=== PATIENT | female | born 1950 | race Caucasian/White ===

== ENCOUNTER → 2017-09-12 | Outpatient (CLI) | payer MEDICARE, OTHER ==
[~2017-09-12] MED LIST: ASPIRIN81 M2 PO; CARAFATE 1 GM TA1 G1 PO; DOLOPHINE HCL5 MG PO; DUONEB 2.5-0.5 M3 ML INH; EPIPEN0.3 MG/0.3 IM; HYDROCODON-ACE1 EAC5 PO; HYDROCODON-ACE1 EAC8 PO; HYDROCODONE-APA1 TA1 PO; METOPROLOL PO; MS CONTIN15 MG PO; NEXIUM40 MG PO; NORCO 10-325 T1 EACH PO; NORCO 7.5-3251 EACH PO; NORVASC 5 MG TAB5 MG PO; OXYCONTIN30 MG PO; PREDNISONE 10 M10 MG PO; PROAIR HFA8.5 GM INH; PROTONIX40 M1 PO; RESTORIL15 MG PO; ROBAXIN 750 MG750 M1 PO; SPIRIVA INH; SUBOXONE 8 MG-1 EAC3 SL; TIZANIDINE HCL4 MG PO; ZANAFLEX4 MG PO; ZANTAC 150MG T150 M1 PO
--- NOTE | 2017-09-17 07:21 | PAINCON ---
[address] [address] PAIN MANAGEMENT CONSULTATION Name: RAMBO BERNSTEIN Room: [facility] Calzada#: [id number] Admission: 09/12/17 Attend Phys: Sixto Middleton Discharge: Date of : 52 Report #: [id number] THIS REPORT FOR: //name// CC: Jose Murry The patient is a 67-year-old female typically treated for lumbar radiculopathy requiring complex medication management. Comorbidities include COPD. Last seen in pain clinic on 06/13/2017. The patient was having increasing radicular symptoms and we suggested she follow up with Neurosurgery. She ultimately did see Neurosurgery and had a posterior fusion. She returns to pain clinic today, she is wearing a neck collar. She notes the surgeon had told her that she had a severe stenosis and was concerned for myelopathy. The patient was in fact getting some paresthesia in her hands prior to the surgery, The patient notes her strength is significantly better in the upper extremities, though she still has some paresthesia in her thumb, index and long finger (C6 and C7). Otherwise, physical exam shows a 67-year-old female, quite cachectic with a BMI of 15.8 kilograms per meter squared (5 feet 2 inches, 84 pounds). Blood pressure 104/59, pulse 127, respirations 18. Again, cervical range of motion exam is deferred due to hard collar. Upper extremity strength, however, is improving. Deep tendon reflexes are diminished but symmetric. Subjective paresthesia in the thumb and index and ring finger. Negative Tinel's. The patient is wearing supplemental oxygen, but she has been able to walk without a walker. We reviewed the fact that opiate medications are being used to provide analgesia adequate to support activities of daily living, not attempting to achieve a specific pain score on the 0-10 Visual Analog Scale. The current opiate medications are providing sufficient analgesia to allow the patient to participate in activities of daily living. The patient is not exhibiting any aberrant behavior suggestive of drug diversion. The patient is not having any adverse reactions to medications. The patient is not suffering from daytime somnolence or mental acuity changes. The patient is managing opiate-induced constipation with appropriate hqeo-loq-ppncwxf agents and dietary considerations. The patient was counseled on concern for caution with operating a motor vehicle while using opiate medications. A physical exam was performed and the patient's functional status was evaluated. All patients with back pain were advised against the bed rest greater than 4 days and were advised to return to normal activities. Pain score assessment was noted and the treatment plan was reviewed with the patient. All current medications, both prescribed and OTC were reviewed and reconciled on the electronic medical record. Tobacco screening was accomplished and smoking cessation was advised when indicated. BMI was noted and diet/exercise modification was recommended for all [place] [address] PAIN MANAGEMENT CONSULTATION Name: RAMBO BERNSTEIN Room: [facility]#: [id number] Admission: 09/12/17 Attend Phys: Sixto Middleton Discharge: Date of : 52 Report #: [id number] parameters. I reviewed with the patient today their responsibilities to safeguard prescription medications, reviewed their responsibility to utilize medications only as prescribed by the physician. They are to seek and receive pain medications only from 1 physician group ( [facility]). They are to use 1 pharmacy and keep the clinic informed if they change pharmacies. Their responsibilities include making followup visits in a timely fashion and to avoid abrupt discontinuation of medication usage. Their responsibilities further include bringing their medications (bottles from the pharmacy with residual pills) to the visit for possible confirmation of pill counts and the patient understands it is their responsibility to submit to random drug screens to ensure both that the medications prescribed are present, and that no other controlled substances are present. All prescriptions provided today were generated electronically. ASSESSMENT: Symptomatic cervical radiculopathy status post decompressive laminectomy, neuropathic pain requiring high risk complex medication management. RECOMMENDATIONS: Continue current medication including hydrocodone 7.5/325 up to 4 a day, I have taken the liberty of writing for 2 months of current medication. Continue Robaxin 750 mg 1-2 tablets 3 times a day, though she does not require prescription for this today. <ELECTRONICALLY SIGNED> By: Zachariah Murry DO 09/17/17 0721 [id number] Murry DO /nt
== END ==
LOC: M.PC 08-15 09:40
DX: M54.12 Radiculopathy, cervical region (principal); J44.9 Chronic obstructive pulmonary disease, unspecified; Z98.890 Other specified postprocedural states

== ENCOUNTER → 2017-11-07 | Outpatient (CLI) | payer MEDICARE, OTHER ==
--- NOTE | 2017-11-09 09:51 | PAINCON ---
[address] [address] PAIN MANAGEMENT CONSULTATION Name: RAMBO BERNSTEIN Room: [facility] Calzada#: [id number] Admission: 11/07/17 Attend Phys: Sixto Middleton Discharge: Date of : 52 Report #: [id number] THIS REPORT FOR: //name// CC: Jose Murry HISTORY OF PRESENT ILLNESS: The patient is a 67-year-old female, long known to the pain clinic, being treated for cervical radiculopathy, lumbar radiculopathy, status post cervical decompressive laminectomies. Comorbidities include COPD. She has chronic pain requiring complex medication management. Last seen in the pain clinic on 09/12/2017. She had a cervical laminectomy and posterior fusion on 07/26/2017. Returns to pain clinic today, is actually doing reasonably well. We did have a prolonged visit from 10:15-10:40 today. She continues to take hydrocodone 7.5/325 one tablet up to 4 times a day for pain. She was developing some myelopathy back in July subsequent to the surgery. She has actually been doing significantly better. She had to wear a neck brace for a number of weeks. She has been out of her cervical soft collar for about 10 days. Still has a little neck pain, but she feels much better. Unfortunately, she was hospitalized for COPD and what sounds like a component of pneumonia, just got out 11/02/2017. She is currently on steroid and Levaquin. Rates pain as 6 on a VAS. PHYSICAL EXAMINATION: Shows 5 feet 2 inches, 83 pounds female, BMI is quite low at 15.3 kilograms per meter squared. She does have osteoporosis, but is on no current treatment. We counseled the patient regarding at least protein supplementation for the low BMI. Blood pressure 106/81, pulse 104, respirations 20. Cervical range of motion is limited, but improving. Upper extremity strength is diminished, but symmetric. With 2 liters supplemental oxygen we were unable to get oxygen sat. She does have Raynaud's and her hands are fairly dusky. She does have palpable radial pulses and she is alert and oriented. Rises from the chair easily. Gait is tandem, modestly ataxic, but significantly improving from her earlier myelopathic presentation. She is still using a cane episodically, though she has progressed and is not using a walker daily. To her credit, she is "weaning" cigarettes, still smoking, however, at three cigarettes a day. Also to the patient's credit, she continues to workout with physical therapy 3 times a week and daily works out with her home "total gym." Today, she is wearing a brace in the right knee. States she has some hyperextension issues though exam shows need to have no ballotable edema and ligaments appear to be generally intact. RECOMMENDATION: We will continue hydrocodone 7.5/325 up to 4 a day for another 1-2 months. Ostensibly would plan to start weaning at that point; however, the patient typically takes too long motorcycle rides with her . He drives [facility] [address] [place] [address] PAIN MANAGEMENT CONSULTATION Name: RAMBO BERNSTEIN Room: [facility] Calzada#: [id number] Admission: 11/07/17 Attend Phys: Sixto Middleton Discharge: Date of : 52 Report #: [id number] the motorcycle and she writes on back. They are going this January and February to [place] and [place]. I typically increase her hydrocodone a little bit to 10/325 product to help with ongoing axial pain with the right. She still, however, does need to get release from her neurosurgeon to be able to wear the helmet for a prolonged period of time status post fusion in July. The patient discharged in good and stable condition. Follow up in 2 months. We had a prolonged visit today, greater than 25 minutes was spent reviewing interval history and discussing therapeutic options moving forward. <ELECTRONICALLY SIGNED> By: Zachariah Murry DO 11/09/17 0951 [id number] Murry DO /nt
== END ==
LOC: M.PC 02:29
DX: M54.12 Radiculopathy, cervical region (principal); M54.16 Radiculopathy, lumbar region; J44.9 Chronic obstructive pulmonary disease, unspecified

== ENCOUNTER → 2018-01-02 | Outpatient (CLI) | payer MEDICARE, OTHER ==
--- NOTE | 2018-01-03 07:50 | PAINCON ---
[facility] [address] [place] [address] PAIN MANAGEMENT CONSULTATION Name: RAMBO BERNSTEIN Room: [facility] Calzada#: [id number] Admission: 01/02/18 Attend Phys: Sixto Middleton Discharge: Date of : 52 Report #: [id number] THIS REPORT FOR: //name// CC: Jose Murry The patient is a 67-year-old female, long known to pain clinic, initially treated for cervical radiculopathy, status post decompressive laminectomy, axial back pain requiring complex medication management. Comorbidity includes significant COPD. She had been a lifelong smoker. Developed increasing COPD with increasing shortness of breath. She has been stable on hydrocodone 7.5/325 four a day. She has been endeavoring to continue to be physically active. She did some work on her total gym trying to keep some body mass and range of motion. She is quite cachectic with a BMI in the teens. Last visit 11/07/2017. We continued the patient on baseline medication. Annually, she and her have taken a motorcycle trip to [place] in [place]. Typically will increase her hydrocodone 10 325 for this. We had a prolonged visit today. She is seen in the company of her who is supportive. She notes with understandable depression that her pulmonary function is becoming much worse. She was hospitalized for exacerbation of COPD in late October. Her most recent followup with pulmonary physician notes that she has essentially end-stage COPD. They had started the discussion about end of life, and I progressed to have a palliative care consult with the patient and her today. She does have a DNR order in place. We talked about transitioning care to palliative care. We talked about morphine sublingual for air hunger and anxiety as well as pain. The patient's oxygen requirements increased from 2-3 liters. She is becoming more cachectic, weight is down 83.4 pounds (BMI 15.3 kilograms per meter squared). We talked about trying to increase some caloric intake simply for her general comfort. She is currently on prednisone 20 mg a day. She is finishing Levaquin for recent pulmonary infection. She rates her pain about 7-1/2 on a 0-10 VAS score. The patient has come to terms with her pulmonary status. To her credit, she is still desirous of accompanying her on a motorcycle trip to [place] in [place]. There was some concern about her wearing a helmet as she had had a cervical decompressive surgery on 07/16/2017 for acute myelopathy. She assures me that her neurosurgeon has released her to wear a motorcycle helmet. Physical exam is otherwise relatively unchanged. We reviewed the fact that opiate medications are being used [place] [address] PAIN MANAGEMENT CONSULTATION Name: RAMBO BERNSTEIN Room: [facility] Elsi#: [id number] Admission: 01/02/18 Attend Phys: Sixto Middleton Discharge: Date of : 52 Report #: [id number] adequate to support activities of daily living, not attempting to achieve a specific pain score on the 0-10 Visual Analog Scale. The current opiate medications are providing sufficient analgesia to allow the patient to participate in activities of daily living. The patient is not exhibiting any aberrant behavior suggestive of drug diversion. The patient is not having any adverse reactions to medications. The patient is not suffering from daytime somnolence or mental acuity changes. The patient is managing opiate-induced constipation with appropriate qorw-wnn-vwabyor agents and dietary considerations. The patient was counseled on concern for caution with operating a motor vehicle while using opiate medications. A physical exam was performed and the patient's functional status was evaluated. All patients with back pain were advised against the bed rest greater than 4 days and were advised to return to normal activities. Pain score assessment was noted and the treatment plan was reviewed with the patient. All current medications, both prescribed and OTC were reviewed and reconciled on the electronic medical record. Tobacco screening was accomplished and smoking cessation was advised when indicated. BMI was noted and diet/exercise modification was recommended for all patients following outside normal parameters. I reviewed with the patient today their responsibilities to safeguard prescription medications, reviewed their responsibility to utilize medications only as prescribed by the physician. They are to seek and receive pain medications only from 1 physician group ( [facility]). They are to use 1 pharmacy and keep the clinic informed if they change pharmacies. Their responsibilities include making followup visits in a timely fashion and to avoid abrupt discontinuation of medication usage. Their responsibilities further include bringing their medications (bottles from the pharmacy with residual pills) to the visit for possible confirmation of pill counts and the patient understands it is their responsibility to submit to random drug screens to ensure both that the medications prescribed are present, and that no other controlled substances are present. All prescriptions provided today were generated electronically. ASSESSMENT: End-stage chronic obstructive pulmonary disease, status post cervical decompressive laminectomy for myelopathy, chronic pain syndrome requiring complex medication management. RECOMMENDATIONS: 1. Hydrocodone 10/325 up to 4 a day, limit 120 tablets. 2. I have taken the liberty of writing for 4-week release prescription for 7.5/325 hydrocodone up to 4 a day. I strongly encouraged her to follow up with her general manager in training physician regarding transitioning to palliative care. They will manage her ongoing pain medicines if she still lacks[place] [address] PAIN MANAGEMENT CONSULTATION Name: RAMBO BERNSTEIN Room: [facility].#: [id number] Admission: 01/02/18 Attend Phys: Sixto Middleton Discharge: Date of : 52 Report #: [id number] rotating to Roxanol 10 mg per mL of 0.5 mL q.4 hours as needed for pain and/or air hunger if needed. We will have the patient to follow up with Dr. Nicole if she does not move forward with palliative care. I told her I will be leaving the area, she will need to find another pain physician. Again, if she transitions to palliative care, at that point will be MOOT. The patient was discharged in good and stable condition today. Follow up only as needed. <ELECTRONICALLY SIGNED> By: Zachariah Murry DO 01/03/18 0750 1404 [id number] Murry DO /nt
== END ==
LOC: M.PC 03:57
DX: J44.9 Chronic obstructive pulmonary disease, unspecified (principal); M54.12 Radiculopathy, cervical region; G89.4 Chronic pain syndrome; M54.5 Low back pain; Z79.899 Other long term (current) drug therapy